=== PATIENT | female | born 1955 | race Hispanic/Latino ===

== ENCOUNTER 2017-10-27 07:04 | Day surgery (SDC) | payer BC, OTHER ==
[2017-10-27] MEDS ORDERED: NACL BACTERIOSTATIC INFILTRATI ONE (09:04)
[2017-10-27] MEDS ORDERED: DEMEROL IV PRN (09:09)
[2017-10-27] MEDS ORDERED: ZOFRAN IV PRN (09:09)
[2017-10-27] MEDS ORDERED: NARCAN 0.4 MG/1 ML IV PRN (09:09)
[2017-10-27] MEDS ORDERED: DILAUDID IV PRN (09:09)
[2017-10-27] MEDS ORDERED: DIPRIVAN 10 MG/ML IV ONE ×3 (09:11→11:08)
[2017-10-27] MEDS ORDERED: XYLOCAINE MPF 2% ONE (09:12)
--- NOTE | 2017-10-27 09:12 | Anesthesia Day of Surgery ---
Anesthesia Day of Surgery - Day of Surgery Patient Examined: Yes Patient H&P Reviewed: Yes Patient is NPO: Yes Beta Blockers: Yes (took metoprolol yesterday)
--- NOTE | 2017-10-27 09:12 | Anesthesia Consultation ---
Anesthesia Consult and Med Hx Date of service: 10/27/17 - Airway Anesthetic Teeth Evaluation: Poor ROM Head & Neck: Adequate Mental/Hyoid Distance: Adequate Mallampati Class: Class III Intubation Access Assessment: Probably Good - Pulmonary Exam CTA: No (mildly wheezing at periphery) - Cardiac Exam Cardiac Exam: RRR - Pre-Operative Health Status ASA Pre-Surgery Classification: ASA3 Proposed Anesthetic Plan: General - Pulmonary Hx Smoking: Yes (1 PPD X 30 YRS) Hx Sleep Apnea: Yes (DX SLEEP APNEA WITH CPAP USE.) - Cardiovascular System Hx Hypertension: No (TAKES MEDS TO CONTROL CHEST PAIN ONLY) Hx Coronary Artery Disease: Yes Hx Angina: Yes (STABLE , CONTROLLED WITH MEDS) - Central Nervous System Hx Back Pain: Yes (NECK AND BACK PAIN) Hx Psychiatric Problems: Yes - Endocrine Hx Hypothyroidism: Yes (ON DAILY MEDS) - Other Systems Hx Cancer: No
[2017-10-27] MEDS ORDERED: SUBLIMAZE ONE ×2 (09:13→10:39)
[2017-10-27] MEDS: NACL 0.9% 1000 ML 1,000 ML IV SCH ×2 (09:49→13:32)
[2017-10-27] MEDS ORDERED: VERSED IV NR (10:00)
[2017-10-27] MEDS ORDERED: LACTATED RINGERS 1,000 ML IV SCH (10:00)
[2017-10-27] MEDS ORDERED: ANCEF/STERILE WATER 2 GM/20 ML IV NR (10:00)
[2017-10-27] MEDS ORDERED: ZOFRAN IV NR (10:00)
[2017-10-27] MEDS ORDERED: WATER FOR IRRIG STERILE IR ONE (10:42)
[2017-10-27] MEDS: DILAUDID IV PRN ×2 (11:38→11:48)
--- NOTE | 2017-10-27 12:21 | Short Stay Summary ---
Short Stay Documentation Date of service: 10/27/17 - History H&P: obtained from office - Allergies and Medications Current Medications: Allergies benzonatate [From Guilherme Townsend] Allergy (Verified 10/18/17 10:12) Rash codeine Allergy (Verified 10/18/17 10:12) Rash pseudoephedrine Allergy (Verified 10/18/17 10:12) Rash Sulfa (Sulfonamide Antibiotics) Allergy (Verified 10/18/17 10:12) Rash Home Medications Medication Instructions Recorded Confirmed Last Taken Type Adalimumab [Humira] 40 mg SQ Q15D 10/04/14 10/27/17 10/16/17 History Aspirin TAB 325 mg PO HS 10/04/14 10/27/17 1 Week Ago History ~10/20/17 Atorvastatin 20 mg PO HS 10/04/14 10/18/17 10/26/17 History Citalopram [Celexa] 20 mg PO DAILY 10/04/14 10/18/17 10/26/17 History Fenofibrate 160 mg PO DAILY 10/04/14 10/18/17 10/26/17 History Isosorbide Mononitrate ER 60 mg PO DAILY 10/04/14 10/27/17 10/27/17 05:30 History Metoprolol Succinate [Toprol Xl] 25 mg PO DAILY 10/04/14 10/27/17 10/26/17 08: 00 History Cholecalciferol (Vitamin D3) 1,000 unit PO DAILY 10/18/17 10/18/17 10/26/17 History [Vitamin D3] Cyanocobalamin (Vitamin B-12) 2,500 mcg PO DAILY 10/18/17 10/18/17 10/26/17 History [Vitamin B12] Fluticasone [Flonase] 1 spray NS QDAY 10/18/17 10/27/17 10/26/17 History Levothyroxine Sodium [Unithroid] 100 mcg PO DAILY 10/18/17 10/27/17 10/27/17 05: 30 History Ranitidine HCl [Acid Business Employment Specialist] 75 mg PO DAILY 10/18/17 10/18/17 10/26/17 History Varenicline Tartrate [Chantix] 1 mg PO DAILY 10/18/17 10/18/17 10/26/17 History Zolpidem [Ambien] 5 mg PO QHS PRN 10/18/17 10/18/17 10/26/17 History Active Medications Cefazolin Sodium (Ancef/Sterile Water 2 Gm/20 Ml) 2 gm IV PREOP NR Stop: 10/27/17 23:59 Hydromorphone HCl (Dilaudid) 0.25 mg IV Q10MIN PRN PRN Reason: Pain, Moderate (4-6) Stop: 10/27/17 18:00 Hydromorphone HCl (Dilaudid) 0.5 mg IV Q10MIN PRN PRN Reason: Pain , Severe (7-10) Stop: 10/27/17 18:00 Last Admin: 10/27/17 11:48 Dose: 0.5 mg Lactated Ringer's (Lactated Ringers) 1,000 mls @ 100 mls/hr IV DIRECT MANDI Sodium Chloride (Nacl 0.9% 1000 Ml) 1,000 mls @ 100 mls/hr IV DIRECT MANDI Last Admin: 10/27/17 09:49 Dose: 100 mls/hr Meperidine HCl (Demerol) 25 mg IV ONCE PRN PRN Reason: Shivering Stop: 10/27/17 18:00 Midazolam HCl (Versed) 2 mg IV PREOP NR Stop: 10/27/17 23:59 Last Admin: 10/27/17 09:51 Dose: 2 mg Naloxone HCl (Narcan 0.4 Mg/1 Ml) 0.1 mg IV Q2MIN PRN PRN Reason: Res Rate </= 8 or 02 SAT < 92% Ondansetron HCl (Zofran) 4 mg IV PREOP NR Stop: 10/27/17 18:00 Last Admin: 10/27/17 09:49 Dose: 4 mg Ondansetron HCl (Zofran) 4 mg IV ONCE PRN PRN Reason: Nausea And Vomiting Stop: 10/27/17 16:00 - Brief post op/procedure progress note Date of procedure: 10/27/17 Pre-op diagnosis: tiffanie renal stones Post-op diagnosis: same Procedure: right renal eswl, cysto rpg stent Anesthesia: GETA Findings: vis up tx Surgeon: BRISSA SHAH Estimated blood loss: minimal Pathology: none Condition: stable - Hospital course Hospital course: [facility] - Disposition Condition at discharge: Good Disposition: DC-01 TO HOME OR SELFCARE Short Stay Discharge Plan Activity: advance as tolerated Follow up with: BRISSA SHAH MD [Staff Physician] - 7 Days
[2017-10-27 19:46] VITALS: BP 164/84
--- NOTE | 2017-12-01 04:17 | Operative Report ---
PREOPERATIVE DIAGNOSES: Right renal 9 mm stone plus some staghorn configuration. POSTOPERATIVE DIAGNOSES: Right renal 9 mm stone plus some staghorn configuration. PROCEDURE: Right renal ESWL. SURGEON: Henry Marti M.D. ANESTHESIA: General. SPECIMENS: None. ESTIMATED BLOOD LOSS: Minimal. CLINICAL INDICATIONS: The patient with a right renal stone, 9 mm; counseled RCBA, antibiotics, SCDs. DESCRIPTION OF PROCEDURE: The patient was transferred to the OR suite in supine position, anesthesia begun, dorsal lithotomy position, prepped and draped, 20-Polish scope passed, contrast injected, confirmed our position. Glidewire passed up to the right renal pelvis. A 6-Polish stent was passed over the wire under direct and fluoroscopic visualization and wire and string was removed, nice proximal and distal J. At this point, the patient was placed in the supine position. Biplanar fluoroscopy was used to target the stone on the right side, there was good visualization. A total of 2500 shocks were delivered at maximum of 5.0 kilovolts, intermittent repositioning was done as necessary. At the end of the procedure, the patient was awakened and transferred to PACU in good and stable condition. Of note, the patient has a horseshoe kidney and she had been counseled on other evaluation including ____ and limitations of treatment here. She had been counseled on options of percutaneous nephrostolithotomy before the procedure. JOB# [id number] ATS/NTS
== END 2017-10-27 14:29 | disposition home or self-care (01) ==
LOC: OR 07:04
PROVIDERS: ATTEND Urology
DX: N20.0 Calculus of kidney (principal); N32.81 Overactive bladder; I25.118 Atherosclerotic heart disease of native coronary artery with other forms of angina pectoris; G47.30 Sleep apnea, unspecified; E03.9 Hypothyroidism, unspecified; Z79.899 Other long term (current) drug therapy; Z88.2 Allergy status to sulfonamides; Z88.5 Allergy status to narcotic agent; Z88.8 Allergy status to other drugs, medicaments and biological substances; F17.210 Nicotine dependence, cigarettes, uncomplicated; Z99.89 Dependence on other enabling machines and devices
CPT/HCPCS: 50590; 82962; A4217; C1758; C1769; C2617; J0690; J1170; J2250; J2405; J2704; J3010; J7030; Q9967